=== PATIENT | male | born 1945 | race Caucasian/White ===

== ENCOUNTER → 2023-05-03 | Outpatient (CLI) | payer MEDICARE ==
--- NOTE | 2023-05-04 00:07 | MR ---
EXAMINATION TYPE: MR lumbar spine wo con DATE OF EXAM: 05/03/2023 COMPARISON: None HISTORY: Right hip pain x 2 weeks. Hx surgery 1970s. CONTRAST: 0 mL intravenous Gadavist. TECHNIQUE: Multiplanar, multisequence images of the lumbar spine were acquired. FINDINGS: L5-S1: No significant disc bulge or disc herniation. No spinal canal stenosis. No foraminal stenosi s. Appears to be some right posterior lateral facet with thecal sac compression within the spinal ca nal. L4-L5: There is minimal grade 1 spondylolisthesis of L4 anterior to L5. Disc uncovering is present. T here is some central protrusion with mild to moderate anterior thecal sac impression. Facet hypertrop hy and ligamentum flavum laxity is present, greater on left contributing to spinal canal narrowing. S evere right foraminal narrowing is present L3-L4: There is a central protrusion with moderate anterior thecal sac compression inferior at the di sc level. Facet hypertrophy and ligamentum flavum laxity is present. Some AP spinal canal narrowing i s present. Moderate left foraminal stenosis is present. L2-L3: Broad-based disc bulge is present with anterior thecal sac flattening. Facet hypertrophy is pr esent. No AP spinal canal stenosis is present. Neural foramen are patent. L1-L2: Right lateral subligamentous disc herniation is present with moderate anterior thecal sac comp ression. There is moderate right foraminal stenosis. T12-L1: No significant disc bulge or disc herniation. No spinal canal stenosis. No foraminal stenos is. IMPRESSION: 1. 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 Correlate for ri ght L2 radicular symptoms. 2. Central protrusion L3-4 with facet hypertrophy and ligamentum flavum laxity is contributing to spi nal canal narrowing. 3. Grade 1 spondylolisthesis of L4 anteriorly on L5 with disc uncovering. Some central protrusion is present with facet hypertrophy and ligamentum flavum laxity contributing to moderate spinal canal esha nosis. 4. Foraminal stenosis discussed above. Most severe appears to be on the right at the L4-5 level.
== END | disposition home or self-care (01) ==
LOC: RADMRIMAIN 10:09
PROVIDERS: ATTEND Orthopaedic Surgery
DX: M48.062 Spinal stenosis, lumbar region with neurogenic claudication (principal); M51.36 Other intervertebral disc degeneration, lumbar region; M99.73 Connective tissue and disc stenosis of intervertebral foramina of lumbar region; M43.16 Spondylolisthesis, lumbar region
CPT/HCPCS: 72148